=== PATIENT | male | born 1960 | race African-American/Black ===

== ENCOUNTER 2017-01-14 06:55 | Emergency (ER) | payer MEDICAID ==
[~2017-01-14] VITALS: Ht 188 cm; Wt 81.0 kg
[~2017-01-14 06:55] MED LIST: AMLO10TA80 PO; BACL20TA PO
[2017-01-14 11:19] VITALS: BP 141/82
== END 2017-01-14 11:36 | disposition home or self-care (01) ==
LOC: ER 07:38
DX: I87.2 Venous insufficiency (chronic) (peripheral) (principal); I10 Essential (primary) hypertension; F17.210 Nicotine dependence, cigarettes, uncomplicated; K21.9 Gastro-esophageal reflux disease without esophagitis
CPT/HCPCS: 93971; 99284